=== PATIENT | male | born 1970 | race Caucasian/White ===

== ENCOUNTER 2017-09-25 02:25 | Emergency (ER) | payer OTHER, SELFPAY ==
[2017-09-25 02:26] VITALS: BP 131/82; PULSE 67; RESP 16; TEMP 37.2; O2SAT 97; BMI 29.8
[2017-09-25] MEDS: Diphth,Pertuss(Acell),Tet Vac 0.5 ML Vial IM (03:05)
--- NOTE | 2017-09-25 03:43 | ED.VISSUMM ---
- ER Visit Summary Date of Service: 09/25/17 Chief Complaint: [Laceration scalp] History of Present Illness: The patient is a 47 M [presents the emergency department from work states that he was crawling under a conveyor belt when he bumped his head against the underneath surface and lacerated his scalp. Patient denies any headache or loss of consciousness. Patient is not on any blood thinners. Patient thinks his last tetanus was about 8 years ago.] Physical Examination: [HEENT-PERRLA, EOMI. Cranial nerves II through XII grossly intact. TMs clear. Mucous membranes moist. No adenopathy. Patient has a 3 cm flap-like laceration over the right frontal scalp. No bony step-offs. Cardiovascular-regular rate and rhythm without murmur or ectopy Lungs-clear to auscultation, chest wall stable without crepitus or subcu emphysema Abdomen-normoactive bowel sounds, soft, nontender, no rebound or rigidity, no peritoneal signs. Extremities-intact ?4, normal range of motion, normal pulses, atraumatic] Test Results: [None indicated] Emergency Department Course and Treatment: [Laceration repair-wound sterilely draped and prepped. Wound anesthetized using 1% lidocaine with epinephrine total 3 cc. Wound cleansed with Shur-Clens and irrigated with copious saline. Using 4-0 nylon a total of 3 single interrupted sutures placed with good wound edge approximation. Patient tolerated procedure well.] Treatment Plan: [Suture removal in 10 days.] Patient to follow-up with [email or web address] Disposition: [Discharged to home in stable condition] Impression: [Scalp laceration 3 cm-simple repair] This note was generated with [employer] dictation software. It may contain incorrect words, spelling, and punctuation that were not noted in review of the chart prior to signing ED Disposition - Plan for ED Patient: Chief Complaint: Laceration Referrals: Virgilio Capone MD [Primary Care Provider] -
--- NOTE | 2017-09-25 03:45 | ED.DEP ---
ED Disposition - Plan for ED Patient: Chief Complaint: Laceration Instructions: ED Laceration Scalp Stitch Or Stap Referrals: Virgilio Capone MD [Primary Care Provider] - [facility] - 10 Day for suture removal
[2017-09-25 04:10] VITALS: BP 123/70; PULSE 58
== END 2017-09-25 04:14 | disposition home or self-care (01) ==
PROVIDERS: Emergency Provider Emergency Medicine; Family Provider Family Medicine; PCP Family Medicine
DX: S01.01XA Laceration without foreign body of scalp, initial encounter (principal); W22.8XXA Striking against or struck by other objects, initial encounter; Y93.9 Activity, unspecified; Y92.89 Other specified places as the place of occurrence of the external cause; Y99.0 Civilian activity done for income or pay
CPT/HCPCS: 12002; 90471; 90715; 99282